=== PATIENT | male | born 1975 | race Two or more races ===

== ENCOUNTER 2021-05-27 22:07 | Emergency (ER) | payer OTHER ==
[~2021-05-27] VITALS: Ht 170.2 cm; Wt 80.3 kg
[2021-05-27] MEDS ORDERED: ZITHROMAX250 MG PO (22:46)
== END 2021-05-27 23:30 | disposition home or self-care (01) ==
LOC: FSED 22:20
DX: A09 Infectious gastroenteritis and colitis, unspecified (principal)
CPT/HCPCS: 99282